=== PATIENT | female | born 1965 | race Caucasian/White ===

== ENCOUNTER → 2017-08-15 | Outpatient (CLI) | payer OTHER ==
[~2017-08-15] MED LIST: AUG875 PO; CALCIUM; DAR100 PO; FISH OIL1 CAP PO; GLUC-198 PO; IBU800 PO; LEVO25TA56 PO; MULT1CAP41 PO; PRAS25CA7 PO; PREGNENOLONE; PROGESTERONE; THY60 PO; [UNRECOGNIZED DRUG - CODE] MC; [UNRECOGNIZED DRUG - CODE] MC
--- NOTE | 2017-08-15 18:29 | RADIOLOGY IMAGING REPORT ---
FACILITY: [facility] PATIENT NAME: Lakia Bonilla : 1965 MR: [id number] V: [id number] EXAM DATE: ORDERING PHYSICIAN: LUDIN REYNOLDS TECHNOLOGIST: Location: [facility] - [place] Patient: Lakia Bonilla : 1965 Visit/Account:[id number] Date of Sevice: 08/15/2017 ANKLE 3 VIEW MIN LEFT COMPARISONS: None. ADDITIONAL PERTINENT HISTORY: Fall with left lower leg pain and swelling. FINDINGS: Osseous structures: Negative. Joint spaces: Negative. Surrounding soft tissues: Negative. IMPRESSION: Normal views of the left ankle. Report Dictated By: Kyle Caldera MD at 08/15/2017 6:25 PM Report E-Signed By: Kyle Caldera MD at 08/15/2017 6:26 PM WSN:[id number]
--- NOTE | 2017-08-15 18:30 | RADIOLOGY IMAGING REPORT ---
FACILITY: [facility] - [place] PATIENT NAME: Lakia Bonilla : 1965 MR: [id number] V: [id number] EXAM DATE: ORDERING PHYSICIAN: LUDIN REYNOLDS TECHNOLOGIST: Location: [facility] - [place] Patient: Lakia Bonilla : 1965 Visit/Account:[id number] Date of Sevice: 08/15/2017 TIBIA FIBULA LEFT COMPARISONS: None. ADDITIONAL PERTINENT HISTORY: Fall with pain and swelling. FINDINGS: Osseous structures: Negative. Joint spaces: Negative. Surrounding soft tissues: Negative. IMPRESSION: No evidence of acute traumatic injury involving the left tibia and fibula. Report Dictated By: Kyle Caldera MD at 08/15/2017 6:26 PM Report E-Signed By: Kyle Caldera MD at 08/15/2017 6:27 PM WSN:[id number]
== END ==
LOC: RAD 17:55
PROVIDERS: ATTEND Family Medicine
DX: M79.89 Other specified soft tissue disorders (principal); M79.605 Pain in left leg

== ENCOUNTER → 2018-04-09 | Outpatient (CLI) | payer OTHER ==
--- NOTE | 2018-04-10 08:46 | RADIOLOGY IMAGING REPORT ---
[place] [facility] [place] KEYA LEMUS : [id number] MR: [id number] V: [id number] EXAM DATE: [id number] ORDERING PHYSICIAN: LUDIN REYNOLDS TECHNOLOGIST: Debra Rowland PROCEDURE:BILATERAL DIGITAL SCREENING MAMMOGRAM WITH CAD ASSISTED INTERPRETATION & 3D TOMOSYNTHESIS COMPARISON:Prior mammograms 04/06/17, 03/29/16, 03/24/16, 03/23/15, 03/05/14, 02/21/13. INDICATIONS:SCREENING FINDINGS: Moderately heterogeneous fibroglandular tissue is seen throughout the breasts. The parenchymal pattern has remained stable allowing for difference in mammographic technique & patient positioning. There is no evidence of malignant appearing mass, malignant appearing calcifications or other secondary sign of malignancy in either breast. DIAGNOSTIC CATEGORY 1--NEGATIVE. RECOMMENDATIONS: ROUTINE MAMMOGRAM AND CLINICAL EVALUATION. IMPRESSION: BIRADS 1: Negative. No significant abnormality is seen. Dictated by: Flaquita Martel M.D. on 04/09/2018 at 16:22 Transcribed by: PATTI on 04/10/2018 at 7:52 Approved by: Flaquita Martel M.D. on 04/10/2018 at 8:45 [facility]
== END ==
LOC: MAMO 03:37
PROVIDERS: ATTEND Family Medicine
DX: Z12.31 Encounter for screening mammogram for malignant neoplasm of breast (principal)
CPT/HCPCS: 77063; 77067

== ENCOUNTER 2018-07-27 00:47 | Day surgery (SDC) | payer OTHER ==
[~2018-07-27] VITALS: Ht 165.1 cm; Wt 78.0 kg
[~2018-07-27 00:47] MED LIST changes: +CHOL10005 PO; +LEVO112T44 PO; +PROG100C PO
[2018-07-27 08:48] VITALS: BP 118/78
[2018-07-27] MEDS ORDERED: NORMOSOL R SOLN(*) 1000 ML BAG 1,000 ML IV PRN (09:45)
[2018-07-27] MEDS ORDERED: LIDOCAINE/SOD BICARB 8.4% SYR ID ONE (09:45)
[2018-07-27] MEDS ORDERED: LIDOCAINE 2% IV 100 MG/5ML SYR ONE (09:46)
[2018-07-27] MEDS ORDERED: PROPOFOL EMUL(*) 10MG/ML 20 ML 40 ML ONE (09:46)
[2018-07-27 10:11] VITALS: BP 104/68
[2018-07-27 10:15] VITALS: BP 104/68
--- NOTE | 2018-07-27 10:20 | NUR ---
1011 SBAR REPORT WAS RECEIVED FROM DR. BOOTHE AND ANALISA GONZALEZ. PATIENT IS BREATHING SPONTANEOUSLY AT A MODERATE RATE AND DEPTH. LUNGS ARE CLEAR. SHE ARRIVED ON 10 LITERS OXYMASK AND THAT WAS TURNED TO 3 LITERS ON ARRIVAL. BOWEL SOUNDS ARE HYPERACTIVE. SHE DENIES ANY PAIN OR NAUSEA. SEE ADMISSION ASSESSMENT. 1020 PATIENT IS RESTING WITH HER EYES CLOSED.
--- NOTE | 2018-07-27 10:23 | Short(Outpt) Discharge Summary ---
Discharge Summary Reason for Hosp/Final Diag: (1) Encounter for screening colonoscopy Hospital Course & Plan: pt presented for colonoscopy. she tolerated the procedure well. she will be discharged home when criteria met. Discharge Instructions Home Meds Reported Medications Levothyroxine Sodium (SYNTHROID) 112 Mcg Tablet, 112 MCG PO QDAY, TAB 07/23/18 Cholecalciferol (Vitamin D3) (VITAMIN D3) Unknown Strength Tablet, PO, TAB 06/27/18 Progesterone,Micronized (PROGESTERONE) Unknown Strength Capsule, PO, CAPSULE 06/27/18 Dexter-3 Fatty Acids (Fish Oil) 1 Cap Capsule, 1 CAP PO DAILY, 0 Refills 02/20/09 [Calcium ] No Conflict Check, DAILY, 0 Refills 02/20/09 Multivitamins W-Minerals (Multivitamin) 1 Cap Capsule, 1 CAP PO DAILY, 0 Refills 02/20/09 Discontinued Reported Medications Levothyroxine Sodium (Levoxyl) 25 Mcg Tablet, 25 MCG PO DAILY, 0 Refills 02/20/09 Diet: Regular Activity: As Tolerated Special Instructions: repeat colonoscopy 10 yrs. WINSOME WRIGHT Jul 27, 2018 10:23
--- NOTE | 2018-07-27 10:28 | NUR ---
1022 PATIENT WAS MOVED TO ROOM AIR 1026 PATIENT BEGAN DRINKING WATER AND EATING CHOCOLATE PUDDING
[2018-07-27 10:56] VITALS: BP 111/73
[2018-07-27 10:57] VITALS: BP 113/78
--- NOTE | 2018-07-27 11:10 | NUR ---
1054 IV WAS SALINE LOCKED 1056 BEGAN DOING ORTHOSTATICS WITH PATIENT. DENIES ANY DIZZINESS OR LIGHTHEADEDNESS 1057 PATIENT WAS STABLE ON HER FEET 1058 PATIENT WAS DRESSED 1100 WENT OVER DC INSTRUCTIONS WITH PATIENT AND . THEY VERBALIZED UNDERSTANDING 1105 IV WAS DC'D WITH CATH INTACT 1110 PATIENT WAS DC'D AND WAS AMBULATORY ON DISCHARGE. LUNGS ARE CLEAR. BOWEL SOUNDS WERE HYPERACTIVE. SHE DENIES ANY PAIN OR NAUSEA. SEE DISCHARGE ASSESSMENT.
== END 2018-07-27 11:10 | disposition home or self-care (01) ==
LOC: OR 00:47
PROVIDERS: ATTEND Surgery
DX: Z12.11 Encounter for screening for malignant neoplasm of colon (principal)
CPT/HCPCS: 00812; 45378; J2001; J2704

== ENCOUNTER → 2018-10-05 | Outpatient (CLI) | payer OTHER | LOC: RESP 02:19 | PROVIDERS: ATTEND Family Medicine | DX: G47.33 Obstructive sleep apnea (adult) (pediatric) (principal) ==